=== PATIENT | female | born 1985 | race Caucasian/White ===

== ENCOUNTER 2018-10-19 12:54 | Emergency (ER) | payer SELFPAY ==
[~2018-10-19] VITALS: Ht 152.4 cm; Wt 79.8 kg
[2018-10-19 12:59] VITALS: Ht 152.4 cm; Wt 79.8 kg
[2018-10-19 15:13] VITALS: BP 144/82
== END 2018-10-19 15:13 | disposition home or self-care (01) ==
LOC: ED 12:54
DX: S16.1XXA Strain of muscle, fascia and tendon at neck level, initial encounter (principal); S29.012A Strain of muscle and tendon of back wall of thorax, initial encounter; S46.911A Strain of unspecified muscle, fascia and tendon at shoulder and upper arm level, right arm, initial encounter; M25.531 Pain in right wrist; V43.52XA Car driver injured in collision with other type car in traffic accident, initial encounter; Y93.I9 Activity, other involving external motion; Y92.488 Other paved roadways as the place of occurrence of the external cause